=== PATIENT | female | born 1990 | race Caucasian/White ===

== ENCOUNTER → 2018-03-01 | Outpatient (CLI) | payer BC | LOC: LAB 13:45 | PROVIDERS: ATTEND Obstetrics & Gynecology | DX: E28.2 Polycystic ovarian syndrome (principal) | CPT/HCPCS: 36415; 83001; 83002 ==

== ENCOUNTER → 2018-05-26 | Outpatient (CLI) | payer BC | LOC: LAB 13:16 | PROVIDERS: ATTEND Obstetrics & Gynecology | DX: N91.1 Secondary amenorrhea (principal) | CPT/HCPCS: 36415; 84702 ==

== ENCOUNTER → 2018-06-06 | Outpatient (CLI) | payer BC ==
--- NOTE | 2018-06-06 14:06 | RADIOLOGY REPORT (SQ) ---
EXAM DESCRIPTION: HYSTEROSALPINGOGRAM; HYSTERO CATH/INJECTION COMPLETED DATE/TIME: 06/06/2018 1:35 pm REASON FOR STUDY: N97.9 FEMALE INFERTILITY, UNSPECIFIED N97.9 FEMALE INFERTILITY, UNSPECIFIED COMPARISON: None. PROCEDURE: PRE-PROCEDURE: Procedure was explained to the patient. She was told to expect cramping du ring the procedure, and possible spotting post procedure. PROCEDURE: The cervix was prepped in sterile fashion. Under direct visual inspection, the cervix was cannulated with the hysterosalpingogram catheter and contrast injected. TECHNIQUE: Temporal fluoroscopic images acquired during the procedure stored to PACS. FLUOROSCOPY TIME: 0.14 6 images saved to PACS. LIMITATIONS: None. FINDINGS: UTERUS: No identified anomalies. No synechia. RIGHT ADNEXA: Occluded. No filling of the tube or spillage of contrast into the peritoneal cavity. LEFT ADNEXA: Occluded. No filling of the tube or spillage of contrast into the peroneal cavity. POST PROCEDURE: The patient tolerated the procedure with no adverse effects. IMPRESSION: BILATERAL TUBAL OCCLUSION. COMMENT: Quality ID 145: Final reports for procedures using fluoroscopy that document radiation exp osure indices, or exposure time and number of fluorographic images (if radiation exposure indices are not available) TECHNICAL DOCUMENTATION: JOB ID: [id number] [employer] [place]- All Rights Reserved Reading location - IP/workstation name: [email or web address]
--- NOTE | 2018-06-06 14:06 | RADIOLOGY REPORT (SQ) ---
EXAM DESCRIPTION: HYSTEROSALPINGOGRAM; HYSTERO CATH/INJECTION COMPLETED DATE/TIME: 06/06/2018 1:35 pm REASON FOR STUDY: N97.9 FEMALE INFERTILITY, UNSPECIFIED N97.9 FEMALE INFERTILITY, UNSPECIFIED COMPARISON: None. PROCEDURE: PRE-PROCEDURE: Procedure was explained to the patient. She was told to expect cramping du ring the procedure, and possible spotting post procedure. PROCEDURE: The cervix was prepped in sterile fashion. Under direct visual inspection, the cervix was cannulated with the hysterosalpingogram catheter and contrast injected. TECHNIQUE: Temporal fluoroscopic images acquired during the procedure stored to PACS. FLUOROSCOPY TIME: 0.14 6 images saved to PACS. LIMITATIONS: None. FINDINGS: UTERUS: No identified anomalies. No synechia. RIGHT ADNEXA: Occluded. No filling of the tube or spillage of contrast into the peritoneal cavity. LEFT ADNEXA: Occluded. No filling of the tube or spillage of contrast into the peroneal cavity. POST PROCEDURE: The patient tolerated the procedure with no adverse effects. IMPRESSION: BILATERAL TUBAL OCCLUSION. COMMENT: Quality ID 145: Final reports for procedures using fluoroscopy that document radiation exp osure indices, or exposure time and number of fluorographic images (if radiation exposure indices are not available) TECHNICAL DOCUMENTATION: JOB ID: [id number] [employer]- All Rights Reserved Reading location - IP/workstation name: [email or web address]
== END ==
LOC: RAD 13:21
PROVIDERS: ATTEND Obstetrics & Gynecology
DX: N97.1 Female infertility of tubal origin (principal)
CPT/HCPCS: 58340; 74740

== ENCOUNTER 2018-08-11 05:30 | Day surgery (SDC) | payer BC ==
[2018-08-03 16:36] LABS: ABSOLUTE EOSINOPHILS # (AUTO) 0.2 10^3/uL (0.0-0.6); ABSOLUTE LYMPHOCYTES (AUTO) 1.2 10^3/uL (0.5-4.7); ABSOLUTE MONOCYTES (AUTO) 0.4 10^3/uL (0.1-1.4); ABSOLUTE NEUT (AUTO) 2.8 10^3/uL (1.7-8.2); BASOPHILS % (AUTO) 0.4 % (0-2); EOSINOPHILS % (AUTO) 4.7 % (0-6); HEMOGLOBIN 12.5 g/dL (12.0-15.5); LYMPHOCYTES % (AUTO) 26.9 % (13-45); MEAN CORPUSCULAR HEMOGLOBIN 30.6 pg (27.0-33.4); MEAN CORPUSCULAR HGB CONC 33.8 g/dL (32.0-36.0); MEAN CORPUSCULAR VOLUME 91 fl (80-97); MONOCYTES % (AUTO) 7.8 % (3-13); PLATELET COUNT 228 10^3/uL (150-450); RED BLOOD COUNT 4.08 10^6/uL (3.72-5.28); RED CELL DISTRIBUTION WIDTH 12.6 % (11.5-14.0); SEGMENTED NEUTROPHILS % (AUTO) 60.2 % (42-78); TOTAL CELLS COUNTED % (AUTO) 100 %; WHITE BLOOD COUNT 4.6 10^3/uL (4.0-10.5)
[2018-08-03 16:39] LABS: APPEARANCE,URINE SLIGHTLY-CLOUDY; BILIRUBIN,URINE NEGATIVE (NEGATIVE); COLOR,URINE YELLOW; GLUCOSE, URINE NEGATIVE (NEGATIVE); KETONES,URINE NEGATIVE (NEGATIVE); LEUKOCYTE ESTERASE,URINE NEGATIVE (NEGATIVE); NITRITE,URINE NEGATIVE (NEGATIVE); PROTEIN,URINE NEGATIVE (NEGATIVE); URINE SPECIFIC GRAVITY 1.017; UROBILINOGEN,URINE NEGATIVE mg/dL (<2.0)
[~2018-08-11 05:30] MED LIST: LACTATED RINGERS 1000 ML IV PRN; LIDOCAINE 0.5% INJ-PF (5 MG/ML) 50 ML SDV SUBCUT PRN; SCOPOLAMINE HYDROBROMIDE 1.5 MG PATCH.TD72 ONE; SCOPOLAMINE HYDROBROMIDE 1.5 MG PATCH.TD72 TD PRN
[2018-08-11 06:31] LABS: HEMATOCRIT 35.7 % (36.0-47.0); HEMOGLOBIN 11.9 g/dL (12.0-15.5); MEAN CORPUSCULAR HEMOGLOBIN 30.6 pg (27.0-33.4); MEAN CORPUSCULAR HGB CONC 33.4 g/dL (32.0-36.0); MEAN CORPUSCULAR VOLUME 92 fl (80-97); PLATELET COUNT 205 10^3/uL (150-450); RED CELL DISTRIBUTION WIDTH 12.8 % (11.5-14.0); WHITE BLOOD COUNT 4.9 10^3/uL (4.0-10.5)
[2018-08-11] MEDS ORDERED: MIDAZOLAM 2 MG/2 ML INJ ONE (06:41)
[2018-08-11] MEDS ORDERED: FENTANYL CITRATE INJ/PF 100 MCG/2 ML AMPUL ONE ×2 (06:41→09:23)
[2018-08-11] MEDS ORDERED: HYDROMORPHONE HCL INJ/PF 2 MG/ML AMPULE ONE (06:42)
[2018-08-11] MEDS ORDERED: ACETAMINOPHEN 1,000 MG/100 ML RTUPB IV ONE (06:42)
[2018-08-11] MEDS ORDERED: PROPOFOL INJ 200 MG/20 ML VIAL IV ONE (06:42)
[2018-08-11] MEDS ORDERED: METHYLENE BLUE 50 MG/10 ML AMPULE ONE (07:12)
[2018-08-11] MEDS ORDERED: BUPIVACAINE HCL 0.25 % INJ/PF (2.5 MG/1 ML) 30 ML VIAL ONE (07:12)
[2018-08-11 07:23] LABS: ANION GAP 5 (5-19); BLOOD UREA NITROGEN 11 mg/dL (7-20); CALCIUM 8.9 mg/dL (8.4-10.2); CARBON DIOXIDE 29 mmol/L (22-30); CHLORIDE 105 mmol/L (98-107); GLUCOSE 88 mg/dL (75-110); POTASSIUM 3.7 mmol/L (3.6-5.0)
[2018-08-11] MEDS ORDERED: ONDANSETRON HCL INJ/PF 4 MG/2 ML SDV ONE ×2 (07:25→13:33)
[2018-08-11] MEDS ORDERED: FAMOTIDINE INJ/PF 20 MG/2 ML SDV IV ONE (07:25)
[2018-08-11] MEDS ORDERED: MEPERIDINE HCL/PF INJ 25 MG/1 ML DISP.SYRIN IV PRN (08:09)
[2018-08-11] MEDS ORDERED: MORPHINE SULFATE 10 MG/ML INJ IV PRN (08:09)
[2018-08-11] MEDS ORDERED: FENTANYL CITRATE INJ/PF 100 MCG/2 ML AMPUL IV PRN ×3 (08:09)
[2018-08-11] MEDS ORDERED: PROMETHAZINE HCL INJ 25 MG/1 ML VIAL IV PRN (08:09)
[2018-08-11] MEDS ORDERED: DIPHENHYDRAMINE HCL 50 MG/ML VIAL IV PRN (08:09)
[2018-08-11] MEDS ORDERED: MORPHINE SULFATE 10 MG/ML INJ IM PRN (10:12)
[2018-08-11] MEDS ORDERED: PROMETHAZINE HCL INJ 25 MG/1 ML VIAL IM PRN (10:12)
[2018-08-11 11:41] VITALS: BP 102/68
[2018-08-11] MEDS ORDERED: SUCCINYLCHOLINE CHLORIDE INJ 200 MG/10 ML VIAL ONE (13:33)
[2018-08-11] MEDS ORDERED: DEXAMETHASONE SOD PHOSPHATE INJ 4 MG/1 ML VIAL ONE (13:33)
[2018-08-11] MEDS ORDERED: GLYCOPYRROLATE 1 MG/5 ML SYRINGE ONE (13:33)
[2018-08-11] MEDS ORDERED: ROCURONIUM BROMIDE INJ 50 MG/5 ML VIAL IV ONE (13:33)
[2018-08-11] MEDS ORDERED: NEOSTIGMINE METHYLSULFATE 10 MG/10 ML VIAL ONE (13:33)
--- NOTE | 2018-08-11 15:15 | OPERATIVE REPORT E ---
Operative Report NAME: JEWELS ORTEGA : 1990 AGE: 28Y DATE OF SURGERY: 08/11/2018 ROOM: PREOPERATIVE DIAGNOSES: 1. Chronic pelvic pain. 2. Abnormal intrauterine bleeding. POSTOPERATIVE DIAGNOSES: 1. Chronic pelvic pain. 2. Abnormal intrauterine bleeding. 3. Pelvic adhesions. SURGEON: DIMITRY BURLESON M.D. AIRCRAFT MAINTENANCE SUPERVISOR: Anna Marie Galeana, [employer] FINDINGS: Multiple filmy adhesions of the ovaries and fallopian tubes. No strictures noted. The fallopian tubes were both bilaterally slightly dilated but not necessarily consistent with hydrosalpinx. The appendix was normal in appearance as well as the liver. The uterus was normal in appearance as well and the endometrial cavity *------* visualized and no obvious obstruction. COMPLICATIONS: None. ESTIMATED BLOOD LOSS: Less than 50 mL. SPECIMENS REMOVED: Pelvic adhesion biopsy. PROCEDURE: Diagnostic laparoscopy with diagnostic hysteroscopy and tubal chromopertubation. PROCEDURE IN DETAIL: The patient was taken to the operating room and prepared and draped in the normal sterile fashion in the dorsal lithotomy position. Under sterile conditions, an in-and-out cath was performed of approximately 50 mL of clear urine. A speculum was placed in the vagina and the cervix was grasped on the anterior lip with a single-toothed tenaculum. HUMI manipulator was then placed. The uterus was then sounded to approximately 6.5 cm. The cervix was dilated to accommodate a 5 mm hysteroscope, which was introduced with the above findings noted. I did notice some small possible polyp type of material within the endometrial cavity. The rest of the endometrial cavity was very smooth in appearance, but I did remove the hysteroscope and performed a quick sharp curettage to remove the material and send for path. I then introduced a HUMI manipulator into the endometrial cavity with good placement. Gloves were changed and attention was turned to the upper portion of the case where an umbilical skin incision was made to accommodate a 5 mm port. A Veress needle was introduced into the peritoneal cavity and free flow of sterile water confirmed placement. The abdomen was then inflated with approximately 2 L of CO2 gas and a 5 mm port was placed through this incision. The camera was introduced. The liver was inspected and found to be normal in appearance. The upper portion of the abdomen again normal-appearing bowel with no endometrial implants noted. The patient was placed in Trendelenburg. We did note at that point that there were multiple filmy adhesions, nothing with any type of stricture noted around the ovaries. The ovaries were normal in appearance with your normal follicular-appearing cysts. The fallopian tubes both were slightly dilated, but no significant torsion noted. There was no evidence of PID at this point other than as a possible history with the filmy adhesions. We then began attempting chromopertubation and methylene blue was placed through the HUMI manipulator via IV tubing, and we did not detect any spillage of methylene blue. We started to note that there was methylene blue coming from the vagina, so it was felt that possibly there was not good placement of the balloon within the cavity. Therefore, I did readjust the manipulator as I did note that the balloon had extruded from the uterus. This was replaced. Gloves were changed, and we attempted repeat chromopertubation, but again, this was unsuccessful. I then switched the HUMI manipulator to a Vcare manipulator, thinking that this possibly could facilitate the balloon remaining within the endometrial cavity effectively. The Vcare manipulator was placed and I then changed my gloves back to a clean pair of gloves and repeated attempt at chromopertubation, which was again unsuccessful and dye again began to come from the vagina from around the manipulator at the cervical os. We then concluded that the fallopian tubes were definitely in deep lock. I examined the filmy adhesions carefully. I did not see any of these adhesions that were suggestive of constriction of the fallopian tube and ovaries, although they did kind of cover both fallopian tubes and ovaries. I inspected the posterior cul-de-sac carefully and saw no signs of endometriosis and no gunpowder lesions whatsoever, and I inspected the anterior aspect of the anterior cul-de-sac, and again, no lesions were noted. The rest of the pelvic cavity was inspected carefully. There was no significant pathology. Again, both ovaries appeared normal. I did take some biopsies with the atraumatic grasper of the pelvic adhesions, felt that it would not behoove us to necessarily try to break up these filmy adhesions as again they were not constricted and did not seem to be part of the reason for the fallopian tube blockage. I then concluded the case, removed instruments. Sponge, lap, and needle counts were correct x2. We deflated abdomen through the umbilical port and both skin incisions were closed using 4-0 Vicryl, and the patient was taken to the PACU in stable condition. DICTATING PHYSICIAN: DIMITRY BURLESON M.D. [id number] PHY#: [id number] ID: [id number] JOB#: [id number] ACCT: [id number] cc:DIMITRY BURLESON M.D. >
== END 2018-08-11 11:35 | disposition home or self-care (01) ==
LOC: OROUT 05:30
PROVIDERS: ATTEND Obstetrics & Gynecology
DX: G89.29 Other chronic pain (principal); R10.2 Pelvic and perineal pain; N73.6 Female pelvic peritoneal adhesions (postinfective); N93.9 Abnormal uterine and vaginal bleeding, unspecified; N97.1 Female infertility of tubal origin; N80.9 Endometriosis, unspecified
CPT/HCPCS: 86900; 86901; 36415 ×2; 86850; 85025; 85027; 81005; 81025; 80048; 88305 ×2; 49320; 58350; J2250; J3490 ×2; J1100; J3010; J2710; J1170; J0330; J2405; J2704; S0028; J0131; Q9968; 840